=== PATIENT | female | born 1995 | race African-American/Black ===

== ENCOUNTER 2019-12-22 20:13 | Emergency (ER) | payer OTHER, SELFPAY ==
[2019-12-22 20:49] VITALS: BP 116/75; PULSE 74; RESP 17; TEMP 37.1; O2SAT 100
[2019-12-22 22:38] VITALS: BP 120/85; PULSE 88; RESP 16; TEMP 36.3; O2SAT 100
--- NOTE | 2019-12-22 23:22 | ED.FEMALEGU ---
HPI - Female Genitourinary General Chief complaint: Urogenital-Female Stated complaint: STD CHECK Time Seen by Provider: 12/22/19 22:55 Source: patient and RN notes reviewed Mode of arrival: ambulatory Limitations: no limitations History of Present Illness HPI Narrative: Pt is a 24 y/o female who presents to the ED with c/o vaginal discharge starting roughly 1 week ago. She notes that she is currently sexually active, and states that she had unprotected intercourse awhile ago. Pt notes that her LMP was 2/5-2/9. She states that she has had a thick, white vaginal discharge over the past week. Pt denies any fever, ABD pain, back pain, dysuria, or vomiting. She states that she is unsure of whether or not she may be currently . MD elicited complaint: vaginal discharge Onset (ago): week(s) (1) Location of symptoms: vaginal Vaginal discharge: white and thick/cheesy Associated symptoms: denies other symptoms Sexual activity: Yes Possible : unsure if Related Data Allergies Allergy/AdvReac Type Severity Reaction Status Date / Time No Known Allergies Allergy Unverified 12/22/19 20:49 Review of Systems Review of Systems: Narrative: CONSTITUTIONAL: Denies fever, chills, or sweats. GASTROINTESTINAL: Denies abdominal pain, nausea, vomiting, or diarrhea. GENITOURINARY: Denies dysuria or hematuria. Reports white vaginal discharge. MUSCULOSKELETAL: Denies back pain, joint pain, or myalgia. All systems reviewed & are unremarkable except as noted in HPI and below PMFSH Past Medical History Medical History UTI (urinary tract infection) Surgical History Surgical History No significant past surgical history Social History Social History Smoking status: Never smoker Gender identity (if verbalized by the patient): Female Exam Narrative: Exam Narrative: GENERAL: Well-appearing, well-nourished, and in no acute distress. HEAD: Normocephalic, atraumatic. EYES: PERRLA and EOMI. ENT: Nares clear, no rhinorrhea or epistaxis. Mucous membranes moist. NECK: Supple. CHEST: Clear to auscultation. No respiratory distress. HEART: Regular rate and rhythm. No murmur heard. Normal peripheral pulses. ABDOMEN: Soft, nontender, nondistended, normal active bowel sounds. CLINIC SCHEDULER/: Labia majora and minora normal without lesions. Vagina without blood. No cervical motion tenderness. No adnexal tenderness or fullness bilaterally. Mucoid discharge present. EXTREMITIES: Normal range of motion. No edema. SKIN: Warm, dry, no rash. NEURO: No focal deficits. Alert and oriented. Course Course Emergency Course: Patient presented for evaluation of vaginal discharge. Patient recently sexually active without protection, we will treat empirically for STI. Patient also has evidence of bacterial vaginosis on exam and cervicitis. She was treated with azithromycin and Flagyl in the ED, given BV, absence of trichomonas, no UTI, will expand Flagyl treatment as well. Patient was advised to follow-up with a primary care physician or [employer] SCHEDULER. She was discharged home in stable condition. Vital Signs Vital signs: Vital Signs Temperature 37.1 C 12/22/19 20:49 Pulse Rate 74 12/22/19 20:49 Respiratory Rate 17 12/22/19 20:49 Blood Pressure 116/75 12/22/19 20:49 Pulse Oximetry 100 12/22/19 20:49 Temperature 36.2 C L 12/23/19 00:22 Pulse Rate 76 12/23/19 00:22 Respiratory Rate 18 12/23/19 00:22 Blood Pressure 112/64 12/23/19 00:22 Pulse Oximetry 100 12/23/19 00:22 MDM - Female Genitourinary Lab Data Labs: Lab Results 12/23/19 12/23/19 12/23/19 Range/Units 00:17 00:26 00:26 Urine Color Yellow (Yellow) Urine Appearance Clear (Clear) Urine pH 6.0 (5.0-9.0) Ur Specific [place] 1.012 (1.001-1.035) Urine Protein Negative (Negative) mg/dL Urine Glucos
[2019-12-23 00:22] VITALS: BP 112/64; PULSE 76; RESP 18; TEMP 36.2; O2SAT 100
[2019-12-23] MEDS: cefTRIAXone 250 MG VIAL IM (00:22)
[2019-12-23] MEDS: AZITHROMYCIN 250 MG TABLET 1000 MG PO (00:22)
[2019-12-23 00:28] LABS: Add Urine Microscopic? NO; Appearance Urine Clear (Clear); Bilirubin Urine Negative (Negative); Blood Urine Negative (Negative); Color Urine Yellow (Yellow); Glucose Urine UA Negative (Negative); Ketones Urine Negative (Negative); Leukocyte Esterase Ur Negative LEU/UL (Negative); Nitrate Urine Negative (Negative); Protein Urine Negative (Negative); Specific Grav Ur 1.012 (1.001-1.035); Urobilinogen Urine Negative mg/dL (<2.0)
[2019-12-23 01:06] VITALS: BP 132/82; PULSE 80; RESP 18; TEMP 36.2; O2SAT 100
== END 2019-12-23 01:07 | disposition home or self-care (01) ==
PROVIDERS: Emergency Provider Emergency Medicine
DX: N72 Inflammatory disease of cervix uteri (principal)
CPT/HCPCS: 81003; 81025; 87070; 87491; 87591; 87808; 96372; 99284; A9270; J0696